=== PATIENT | female | born 1955 | race Caucasian/White ===

== ENCOUNTER 2018-02-02 19:28 | Emergency (ER) | payer OTHER ==
[2018-02-02 20:14] VITALS: BP 140/71
--- NOTE | 2018-02-02 21:00 | UC ---
Throat Pain/Nasal Star HPI - HPI Summary HPI Summary: 62 y/o female presents to the urgent care c/o productive coughing, chest congestion, sore throat, sinus congestion, post nasal dripping for the past 2 days. Pt reports she developed mild wheezing this morning. PND is yellowish. has similar symptoms. Pt denies SOB, fever, chest pain, abdominal pain, dizziness, N/V/D. Pt has not taking anything to alleviate symptoms. - History of Current Complaint Chief Complaint: UCRespiratory Stated Complaint: UPPER RESPIRATORY Time Seen by Provider: 02/02/18 20:58 Hx Obtained From: Patient ?: No - menopausal Onset/Duration: Gradual Onset, Lasting Days - 2 days, Still Present, Worse Since - today Severity: Moderate Pain Intensity: 0 Pain Scale Used: 0-10 Numeric Cough: Sputum Appears - yellowish Associated Signs & Symptoms: Positive: Dysphagia, Wheezing - mild, Nasal Discharge - Epiglottits Risk Factors Epiglottis Risk Factors: Negative - Allergies/Home Medications Allergies/Adverse Reactions: Allergies Allergy/AdvReac Type Severity Reaction Status Date / Time No Known Allergies Allergy Verified 02/02/18 20:14 Home Medications: Home Medications Dm/PE/Acetaminophen/Chlorphenr [Cold Head Congestion Caplet] 2 tab PO ONCE PRN 02/02/18 [History Confirmed 02/02/18] PMH/Surg Hx/FS Hx/Imm Hx Previously Healthy: Yes Endocrine History: Diabetes - diet control, Hypothyroidism GI/ History: Gastroesophageal Reflux Psychological History: Anxiety - Surgical History Surgical History: Yes Surgery Procedure, Year, and Place: 1990 HYSTERECTOMY,THYROIDECTOMY ,2004 GASTRIC BYPASS,2006 GALLBLADDER REMOVED - Family History Known Family History: Positive: Hypertension, Diabetes - Social History Occupation: Employed Full-time Lives: With Family Alcohol Use: Daily Alcohol Amount: 2-3 beers Substance Use Type: None Smoking Status (MU): Never Smoked Tobacco Length of Time of Smoking/Using Tobacco: smoked for 8 years - Immunization History Most Recent Influenza Vaccination: March 2015 Review of Systems Constitutional: Negative Skin: Negative Eyes: Negative ENT: Sore Throat, Nasal Discharge, Sinus Congestion Respiratory: Cough - productive w/ yellowish phlegm, Other - mild wheezing Cardiovascular: Negative Gastrointestinal: Negative Genitourinary: Negative Motor: Negative Neurovascular: Negative Musculoskeletal: Negative Neurological: Negative Psychological: Negative Is Patient Immunocompromised?: No All Other Systems Reviewed And Are Negative: Yes Physical Exam - Summary Physical Exam Summary: Vital Signs Reviewed: Yes General: well developed, well nourished female sitting in the examining table w/ o any apparent distress Eyes: Positive: Conjunctiva Clear - PERRLA, EOMI, fundi grossly normal ENT: Positive: Normal ENT inspection, Hearing grossly normal, Pharynx normal, Nasal congestion - edematous and erythematous nasal mucosa, Nasal drainage - yellowish drainage, TMs normal. Negative: Tonsillar swelling, Tonsillar exudate Neck: Positive: Supple, Nontender, No Lymphadenopathy Respiratory: no orthopnea or dyspnea. Able to speak in full sentences, no retractions or accessory muscle use, no tripod position, stridor, or head bobbing. positive breath sounds bilaterally, mild wheezing in the left upper posterior lung wheezes, rhonchi, rales. Cardiovascular: Positive: RRR, No Murmur, Pulses Normal, Brisk Capillary Refill Abdomen Description: Positive: Nontender, No Organomegaly, Soft. Negative: CVA Tenderness (R), CVA Tenderness (L) Bowel Sounds: Positive: Present Musculoskeletal Exam: Normal Musculoskeletal: Positive: Strength Intact, ROM Intact, No Edema Neurological Exam: Normal Psychological Exam: Normal Skin Exam: Normal Triage Information Reviewed: Yes Vital Signs: Initial Vital Signs Temp 98.1 F 02/02/18 20:10 Pulse 83 02/02/18 20:10 Resp 18 02/02/18 20:10 BP 140/71 02/02/18 20:10 Pulse Ox 99 02/02/18 20:10 Throat Pain/Nasal Course/Dx - Course Course Of Treatment: 62 y/o female presents to the urgent care c/o productive coughing, chest congestion, sore throat, sinus congestion, post nasal dripping for the past 2 days. Pt reports she developed mild wheezing this morning. PND is yellowish. has similar symptoms. Pt denies SOB, fever, chest pain, abdominal pain, dizziness, N/V/D. Pt has not taking anything to alleviate symptoms. Hx obtained. Pt with Acute bronchitis and mild wheezing on examination. Pt given Duoneb treatment and first dose of Z-mario. Pt tolerated well medication and Pt felt better. Pt Rx Z-mario PO and Albuterol inhaler to alleviate bronchospasm. Pt advised to increase fluid intake and eat well. if not improvement or worsening of symptoms to return to the urgent care or f/u with PCP for further management. Pt's BP is elevated today advised to decrease salt in diet, monitor BP and f/u with PCP for further management. Pt understood and agreed with plan of care. - Differential Dx/Diagnosis Differential Diagnosis/HQI/PQRI: Influenza, Pharyngitis, URI, Other - bronchitis , pneumonia Provider Diagnoses: 1- Acute Bronchitis. 2-Wheezing. 3- Elevated BP w/o Hx of HTN Discharge - Sign-Out/Discharge Documenting (check all that apply): Patient Departure - D/C home - Discharge Plan Condition: Stable Disposition: HOME Prescriptions: Albuterol HFA INHALER* [Ventolin HFA Inhaler*] 1 - 2 puff INH Q6H PRN #1 mdi PRN Reason: Wheezing Azithromycin TAB* [Zithromax TAB (Z-MARIO) 250 mg #6 tabs] 250 mg PO DAILY #4 tab Patient Education Materials: Acute Bronchitis (ED), Low-Sodium Diet (ED), Wheezing (ED) Referrals: Kizzy Norwood MD [Primary Care Provider] - 3 Days Additional Instructions: 1-Please take full course of antibiotic to avoid resistance. 2- Use the albuterol inhaler to alleviate cough. Increase fluid intake, rest and eat well. 3- If symptoms do not improve or worsen or your develop SOB with fever and severe wheezing please go immediately to the ER further evaluation and treatment. 4- F/u with your PCP in 3 days if not improvement of symptom for further management. 5-Your BP is elevated today. please decrease salt in your diet, monitor BP and if it continues to be elevated please f/u with your PCP for further management - Billing Disposition and Condition Condition: STABLE Disposition: Home
[2018-02-02] MEDS ORDERED: Azithromycin TAB* 250 MG PO ONE (21:17)
[2018-02-02] MEDS ORDERED: Albuterol/Ipratropium NEB.SOL* Albuterol 2.5 MG/Ipratropium 0.5 MG 3 ML INH ONE (21:17)
== END 2018-02-02 21:59 | disposition home or self-care (01) ==
LOC: UCCORT 19:28
DX: J20.9 Acute bronchitis, unspecified (principal); R06.2 Wheezing; R03.0 Elevated blood-pressure reading, without diagnosis of hypertension; E11.9 Type 2 diabetes mellitus without complications
CPT/HCPCS: 99212; A9270-GY; G0463

== ENCOUNTER 2019-05-12 13:01 | Emergency (ER) | payer OTHER | END 2019-05-12 13:55 | disposition left against medical advice (07) | LOC: UCCORT 13:01 | DX: Z53.21 Procedure and treatment not carried out due to patient leaving prior to being seen by health care provider (principal) ==

== ENCOUNTER 2019-05-12 16:27 | Emergency (ER) | payer OTHER ==
--- NOTE | 2019-05-12 17:13 | UC ---
Respiratory Complaint HPI - History of Current Complaint Stated Complaint: COUGH - Allergies/Home Medications Allergies/Adverse Reactions: Allergies Allergy/AdvReac Type Severity Reaction Status Date / Time No Known Allergies Allergy Verified 02/02/18 20:14 PMH/Surg Hx/FS Hx/Imm Hx Endocrine History: Hypothyroidism - Surgical History Surgical History: Yes Surgery Procedure, Year, and Place: 1990 HYSTERECTOMY. THYROIDECTOMY. 2004 GASTRIC BYPASS. 2006 GALLBLADDER REMOVED - Family History Known Family History: Positive: Hypertension, Diabetes - Social History Alcohol Use: Daily Alcohol Amount: 2-3 beers Substance Use Type: None Smoking Status (MU): Never Smoked Tobacco Length of Time of Smoking/Using Tobacco: smoked for 8 years - Immunization History Most Recent Influenza Vaccination: March 2015 Discharge ED - Discharge Plan Referrals: Kizzy Norwood MD [Primary Care Provider] -
[2019-05-12 17:20] VITALS: BP 126/72
--- NOTE | 2019-05-12 17:26 | UC ---
FLU HPI - HPI Summary HPI Summary: Patient is a 63yo female presenting with for c/o nasal congestion, sore throat, b/l ear pain, subjective fever, chills, bodyaches, and cough x2 days. Patient notes mildly productive cough. Also notes sharp back pain worse with coughing. Denies SOB and wheezing. Denies n/v/d and abdominal pain. Does note decreased appetite. Denies decreased fluid intake. Has not taken anything for symptom relief. Patient states her had similar symptoms 2 weeks ago which have resolved. Denies h/o asthma, allergies, copd, and other lungs issues. - History of Current Complaint Stated Complaint: COUGH Hx Obtained From: Patient, Family/Cloth Booker - Onset/Duration: Gradual Onset, Lasting Days Severity Initially: Moderate Pain Intensity: 7 Pain Scale Used: 0-10 Numeric - Allergy/Home Medications Allergies/Adverse Reactions: Allergies Allergy/AdvReac Type Severity Reaction Status Date / Time No Known Allergies Allergy Verified 05/12/19 17:20 PMH/Surg Hx/FS Hx/Imm Hx Endocrine History: Hypothyroidism - Surgical History Surgical History: Yes Surgery Procedure, Year, and Place: 1990 HYSTERECTOMY. THYROIDECTOMY. 2004 GASTRIC BYPASS. 2006 GALLBLADDER REMOVED - Family History Known Family History: Positive: Hypertension, Diabetes - Social History Lives: With Family Alcohol Use: Daily Alcohol Amount: 2-3 beers Substance Use Type: None Smoking Status (MU): Former Smoker Length of Time of Smoking/Using Tobacco: smoked for 8 years - Immunization History Most Recent Influenza Vaccination: March 2015 Review of Systems All Other Systems Reviewed And Are Negative: Yes Constitutional: Positive: Fever, Chills ENT: Positive: Sore Throat, Ear Ache, Sinus Congestion. Negative: Nasal Discharge, Sinus Pain/Tenderness Respiratory: Positive: Cough - mild productive. Negative: Shortness Of Breath Cardiovascular: Positive: Negative Gastrointestinal: Positive: Negative Musculoskeletal: Positive: Myalgia Neurological: Positive: Negative Physical Exam Triage Information Reviewed: Yes Appearance: Well-Appearing, No Pain Distress, Well-Nourished Vital Signs: Initial Vital Signs Temp 101.1 F 05/12/19 17:16 Pulse 68 05/12/19 17:16 Resp 18 05/12/19 17:16 BP 126/72 05/12/19 17:16 Pulse Ox 97 05/12/19 17:16 Lab Results 05/12/19 Range/Units 17:42 Influenza A (Rapid) Negative (Negative) Influenza B (Rapid) Negative (Negative) Vital Signs Reviewed: Yes Eyes: Positive: Conjunctiva Clear ENT: Positive: Hearing grossly normal, Pharyngeal erythema, TMs normal, Uvula midline. Negative: Nasal congestion, Nasal drainage, Tonsillar swelling, Tonsillar exudate, Sinus tenderness Neck exam: Normal Neck: Positive: Supple, Nontender, No Lymphadenopathy Respiratory Exam: Normal Respiratory: Positive: Lungs clear, Normal breath sounds, No respiratory distress. Negative: Crackles, Rhonchi, Stridor, Wheezing Cardiovascular Exam: Normal Cardiovascular: Positive: RRR Musculoskeletal Exam: Normal Neurological: Positive: Alert Psychological: Positive: Age Appropriate Behavior Skin Exam: Normal Flu Course/Dx - Course Course Of Treatment: Negative rapid flu. Normal lung sounds, 97% O2 sat, and normal PE findings. Patient well-appearing. Patient received ibuprofen for body aches and fever. Voiced feeling somewhat better. Educated on viral illness and symptomatic relief. Prescribed mucinex D and flonase for symptomatic relief. Patient pharmacy closed so she received 200mg guaifenesin here. Instructed to follow up with pcp for persistent symptoms or go to ED with new or worsening symptoms. Patient voiced understanding and agreed with treatment plan. - Differential Dx/Diagnosis Provider Diagnosis: Flu-like symptoms Discharge ED - Sign-Out/Discharge Documenting (check all that apply): Patient Departure All imaging exams completed and their final reports reviewed: No Studies - Discharge Plan Condition: Stable Disposition: HOME Prescriptions: Fluticasone NASAL SPRAY 50MCG* [Flonase NASAL SPRAY 50MCG*] 2 spray BOTH NARES DAILY PRN #1 btl PRN Reason: Congestion Guaifenesin/Pseudoephedrne HCl [Mucinex D] 1 tab PO DAILY PRN #7 tab PRN Reason: Congestion Patient Education Materials: Viral Syndrome (ED) Referrals: Kizzy Norwood MD [Primary Care Provider] - If Needed Additional Instructions: As discussed, your rapid flu test was negative. Your symptoms are most likely caused by a different virus. Viruses do not respond to antibiotic treatment. You may take Mucinex to help reduce your mucus production. You may use an over the counter nasal spray such as Flonase for symptomatic relief. You may take ibuprofen as directed for pain relief. Get plenty of rest and increase your fluid intake. Follow up with your primary care doctor if your symptoms do not resolve within 7 days. Go to the Emergency Room if you experience new or worsening symptoms. - Billing Disposition and Condition Condition: STABLE Disposition: Home - Attestation Statements Provider Attestation: I was available for consult. This patient was seen by the D[facility]. The patient was not presented to, seen by, or examined by me. -Lexy
[2019-05-12] MEDS ORDERED: Ibuprofen TAB* 600 MG PO ONE (17:31)
[2019-05-12 17:54] LABS: Influenza A Molecular NEGATIVE (Negative); Influenza B Molecular NEGATIVE (Negative)
[2019-05-12] MEDS ORDERED: guaiFENesin LIQ* 100 MG/5 ML UDC PO ONE ×2 (18:11→18:20)
== END 2019-05-12 18:35 | disposition home or self-care (01) ==
LOC: UCEAST 16:27
DX: R05 Cough (principal); R09.81 Nasal congestion; J02.9 Acute pharyngitis, unspecified; H92.03 Otalgia, bilateral; R50.9 Fever, unspecified; M54.9 Dorsalgia, unspecified; M79.10 Myalgia, unspecified site; Z87.891 Personal history of nicotine dependence
CPT/HCPCS: 99212; A9270-GY; G0463